=== PATIENT | male | born 2000 | race Caucasian/White ===

== ENCOUNTER 2022-02-24 13:55 | Emergency (ER) | payer MEDICAID ==
[~2022-02-24] VITALS: Ht 193 cm; Wt 100.0 kg
[2022-02-24 14:16] VITALS: BP 143/87
[2022-02-24] MEDS ORDERED: TETANUS, DIPHTHERIA, PERTUSSIS VAC/PF 0.5ML (>10YR OLD) IM ONE (16:15)
[2022-02-24] MEDS ORDERED: HYDROCODONE/ACETAMINOPHEN 5/325MG TABLET PO ONE (16:15)
[2022-02-24] MEDS ORDERED: BACITRACIN ZINC OINT UDPKT TOP ONE (16:15)
[2022-02-24] MEDS ORDERED: BO1 TP (16:22)
[2022-02-24] MEDS ORDERED: CEPH500C2 MT (16:22)
[2022-02-24] MEDS ORDERED: IBUP-2029 MT (16:22)
== END 2022-02-24 16:59 | disposition home or self-care (01) ==
LOC: ER 13:55
DX: S80.811A Abrasion, right lower leg, initial encounter (principal); V43.52XA Car driver injured in collision with other type car in traffic accident, initial encounter; Y93.89 Activity, other specified; Y92.488 Other paved roadways as the place of occurrence of the external cause
CPT/HCPCS: 90471; 90715; 99283

== ENCOUNTER 2022-04-26 16:47 | Emergency (ER) | payer MEDICAID ==
[~2022-04-26] VITALS: Ht 193 cm; Wt 114.0 kg
[~2022-04-26 16:47] MED LIST: BO1 TP; CEPH500C2 MT; IBUP-2029 MT
[2022-04-26 16:56] VITALS: BP 133/84
== END 2022-04-26 18:37 | disposition left against medical advice (07) ==
LOC: ER 16:47
DX: Z53.21 Procedure and treatment not carried out due to patient leaving prior to being seen by health care provider (principal)

== ENCOUNTER 2022-05-28 16:27 | Emergency (ER) | payer MEDICAID ==
[~2022-05-28] VITALS: Ht 193 cm; Wt 108.0 kg
[2022-05-28 16:49] VITALS: BP 157/75
[2022-05-28] MEDS ORDERED: CEFTRIAXONE SODIUM 500 MG/VIAL IM ONE (17:15)
[2022-05-28 19:09] LABS: CLARITY URINE CLEAR (CLEAR); COLOR URINE YELLOW (YELLOW); KETONES URINE TRACE (NEGATIVE); LEUKOCYTE ESTERASE URINE NEGATIVE (NEGATIVE); NITRITE URINE NEGATIVE (NEGATIVE); OCCULT BLOOD URINE NEGATIVE (NEGATIVE); PROTEIN URINE TRACE (NEGATIVE); SPECIFIC GRAVITY URINE 1.027 (1.005-1.030)
[2022-05-28] MEDS ORDERED: CEFTRIAXONE SODIUM 500 MG/VIAL IM NR (21:00)
[2022-05-28] MEDS ORDERED: DOXY100C5 MT (21:01)
[2022-05-31 09:10] LABS: NEISSERIA GONORRHOEAE NAA Negative (Negative)
== END 2022-05-28 21:14 | disposition home or self-care (01) ==
LOC: ER 16:27
DX: A74.9 Chlamydial infection, unspecified (principal)
CPT/HCPCS: 81003; 87491; 87591; 96372; 99283; J0696

== ENCOUNTER 2023-04-17 08:33 | Emergency (ER) | payer MEDICAID ==
[~2023-04-17] VITALS: Ht 195.6 cm; Wt 118.0 kg
[~2023-04-17 08:33] MED LIST changes: +DOXY100C5 MT; +IBUP-2029 PO; +SULF1TAB48 MT
[2023-04-17 08:43] VITALS: BP 132/90; PULSE 84; RESP 16; TEMP 97.9; O2SAT 99
== END 2023-04-17 10:21 | disposition home or self-care (01) ==
LOC: ER 08:33
DX: L02.31 Cutaneous abscess of buttock (principal); Z79.899 Other long term (current) drug therapy
CPT/HCPCS: 99281